=== PATIENT | female | born 1985 | race Caucasian/White ===

== ENCOUNTER → 2017-01-06 | Outpatient (CLI) | payer BC ==
[2017-01-06 15:03] LABS: BENZODIAZEPINE, URINE NEG (NEG); COCAINE,URINE NEG (NEG); PHENCYCLIDINE, URINE NEG (NEG)
== END | disposition home or self-care (01) ==
LOC: C.LAB 14:02
PROVIDERS: ATTEND Psychiatry & Neurology Psychiatry
DX: F90.2 Attention-deficit hyperactivity disorder, combined type (principal)

== ENCOUNTER → 2017-01-21 | Outpatient (CLI) | payer BC ==
[2017-01-21 13:26] LABS: BENZODIAZEPINE, URINE NEG (NEG); COCAINE,URINE NEG (NEG); PHENCYCLIDINE, URINE NEG (NEG)
== END | disposition home or self-care (01) ==
LOC: C.LAB 12:39
PROVIDERS: ATTEND Psychiatry & Neurology Psychiatry
DX: F33.1 Major depressive disorder, recurrent, moderate (principal)

== ENCOUNTER 2017-04-03 19:34 | Emergency (ER) | payer BC, OTHER ==
[~2017-04-03] VITALS: Ht 160 cm; Wt 105.2 kg
[2017-04-03 19:38] VITALS: TEMP 36.5; Ht 160 cm; Wt 105.2 kg
[2017-04-03] MEDS ORDERED: ONDANSETRON INJ 2 MG/ML 2 ML VIAL IV STA (20:09)
[2017-04-03] MEDS ORDERED: SODIUM CHLORIDE 0.9% 1000ML 1,000 ML IV SCH (20:15)
[2017-04-03] MEDS ORDERED: SODIUM CHLORIDE 0.9% 1000ML 1,000 ML IV STA (20:33)
[2017-04-03] MEDS ORDERED: LISD30CA4 PO (20:36)
[2017-04-03] MEDS ORDERED: LEVO25TA5 PO (20:37)
[2017-04-03] MEDS ORDERED: TRAZ100T29 PO (20:38)
[2017-04-03] MEDS ORDERED: VNTHFA/IN INH (20:39)
[2017-04-03 20:44] LABS: HEMATOCRIT 41.9 % (37-47); HEMOGLOBIN 14.5 g/dL (12.0-16.0); MEAN CELL VOLUME 85.7 fL (80-100); MEAN CORPUSCULAR HEMOGLOBIN 29.7 pg (25-34); MEAN CORPUSCULAR HGB CONC 34.6 g/dl (32-36); MEAN PLATELET VOLUME 9.6 fL (7.4-10.4); PLATELET COUNT 313 K/uL (130-400); RED CELL DISTRIBUTION WIDTH CV 13.7 % (11.5-14.5); RED CELL DISTRIBUTION WIDTH SD 42.3 fL (36.4-46.3)
[2017-04-03 20:53] LABS: ALBUMIN 4.2 gm/dl (3.4-5.0); CALCIUM 9.5 mg/dl (8.5-10.1); CREATININE 0.95 mg/dl (0.60-1.20); POTASSIUM 3.9 mmol/L (3.5-5.1)
[2017-04-03 20:55] LABS: TOTAL PROTEIN 7.8 gm/dl (6.4-8.2)
[2017-04-03] MEDS ORDERED: OPTIRAY 320 IV PRN (21:15)
[2017-04-03 21:27] LABS: INFLUENZA B ANTIGEN Neg for Influ B (NEG)
--- NOTE | 2017-04-03 21:36 | DIAGNOSTIC IMAGING REPORT ---
CT SCAN OF THE BRAIN WITHOUT IV CONTRAST CLINICAL HISTORY: Fall. Headache. COMPARISON STUDY: No priors. TECHNIQUE: Unenhanced axial CT scan of the brain is performed from the vertex to the skull base. A dose lowering technique was utilized adhering to the principles of ALARA. CT DOSE: 537.48 mGy.cm FINDINGS: Brain parenchyma: The brain parenchyma is normal in appearance. There is no hemorrhage, mass effect, or evidence of acute territorial ischemia by CT criteria. Rodriguez-white matter is preserved. No extra-axial fluid collection is seen. Ventricles, sulci, cisterns: Normal in configuration. Intracranial vasculature: The visualized intracranial vasculature at the skull base is normal in appearance. Calvarium: There is no depressed calvarial fracture. Sinuses and mastoids: The visualized paranasal sinuses are clear. The mastoid air cells are well pneumatized. Orbits: The bony orbits are grossly intact. IMPRESSION: No acute intracranial abnormality. Electronically signed by: Eulalio Estrada M.D. 04/03/2017 9:34 PM Dictated Date/Time: 04/03/2017 9:33 PM
--- NOTE | 2017-04-03 21:41 | DIAGNOSTIC IMAGING REPORT ---
CT SCAN OF THE ABDOMEN AND PELVIS WITH IV CONTRAST CLINICAL HISTORY: Generalized abdominal pain. Fall. COMPARISON STUDY: No priors. TECHNIQUE: Following the IV administration of 114 cc of Optiray 320, CT scan of the abdomen and pelvis is performed from the lung bases to the proximal femora. Images are reviewed in the axial, sagittal, and coronal planes. IV contrast was administered without complication. A dose lowering technique was utilized adhering to the principles of ALARA. CT DOSE: 1079.73 mGy.cm FINDINGS: Lung bases: The heart is normal in size and without pericardial effusion. The lung bases are clear note dependent atelectasis. Liver: The contrast-enhanced liver is normal in size, contour, and attenuation. Fatty infiltration is seen adjacent to falciform ligament. There is no intrahepatic biliary ductal dilatation. The hepatic veins and portal veins are patent. Gallbladder: Unremarkable. Spleen: Normal in size and attenuation. 11 mm low-attenuation lesion is seen in the spleen on image #86. Statistically this is of doubtful significance. Pancreas: Unremarkable. Adrenal glands: Unremarkable. Kidneys: The contrast enhanced kidneys are normal in size and without hydronephrosis. The kidneys enhance symmetrically. Abdominal vasculature: The abdominal aorta is normal in course and caliber. Bowel: The small bowel and colon are normal in course and caliber. The appendix is well-visualized and normal. There are bilateral ovarian follicles. Trace free fluid in the cul-de-sac is likely within physiologic limits. Peritoneum: There is no intraperitoneal free air or abdominal ascites. There is a small fat-containing umbilical hernia. Lymphadenopathy: None. Pelvic viscera: The bladder, uterus, and adnexa are normal as visualized. Skeletal structures: No fracture is seen. No lytic or blastic lesions are identified. IMPRESSION: 1. There is no evidence of solid organ injury in the abdomen or pelvis. 2. There are no acute infectious or inflammatory findings in the abdomen or pelvis. 3. There is trace free fluid in the cul-de-sac, likely within physiologic limits. Electronically signed by: Eulalio Estrada M.D. 04/03/2017 9:39 PM Dictated Date/Time: 04/03/2017 9:34 PM
--- NOTE | 2017-04-03 21:46 | EMERGENCY ROOM VISIT NOTE ---
History First contact with patient: 19:44 Chief Complaint: SYNCOPE (NEAR SYNCOPE) Stated Complaint: VOMITING,DIZZINESS,FAINTNESS LEADING TO FALL Nursing Triage Summary: pt states she has been vomiting since 04/01/17, states "I can't keep anything down." reports today "I fell down a set of stairs around 4pm." states she had +LOC for "a couple minutes." pt denies vision changes, numbness tingling. c/o head pain, and "a little bit of chest pain." pt alert and oriented x4, breathing regularly and independently, skin warm and dry. History of Present Illness The patient is a 31 year old female who presents to the Emergency Room with complaints of syncope. She fell down a flight of 10 stairs earlier this evening as she was feeling very dizzy and light headed. She lost consciousness for a few minutes. She said she hit the right side of her head. She has been unable to keep down any food since the 01 of April due to continuous vomiting. This has been associated with a fever, mild chest discomfort and shortness of breath. She denies any change in diet, she denies any sick contacts. She has only been able to keep down a small amount of water. She denies any leg weakness, arm weakness, slurred speech, difficulty swallowing, urinary symptoms Review of Systems CONSTITUTIONAL: + fever, chills. No recent infections. No weight loss or weight gain. NEUROLOGIC: + headaches, dizziness or syncopal episodes. HEENT: No hearing or visual changes. No sinus or nasal issues. CARDIOVASCULAR: +mild chest pain, no palpitations RESPIRATORY: + SOB, no cough or hemoptysis. GASTROINTESTINAL: + nausea, vomiting, diarrhea, constipation, reflux, melena or hematochezia. GENITOURINARY: No dysuria, frequency, urgency, incontinence or hematuria. SKIN: No rashes or skin lesions. HEMATOLOGIC: No bleeding or abnormal bruising Past Medical/Surgical History Medical Problems: (1) Heart disease (2) Hypertension Family History Cancer Heart disease Hypertension Seizures Social History Smoking Status: Former Smoker Current/Historical Medications Scheduled Levothyroxine Sodium (Levothyroxine Sodium), 25 MCG PO DAILY Lisdexamfetamine Dimesylate (Vyvanse), 30 MG PO DAILY Trazodone Hcl (Trazodone), 100 MG PO HS Scheduled PRN Albuterol Hfa (Ventolin Hfa), 2 PUFFS INH Q6H PRN for SOB/Wheezing Allergies Penicillin aspirin Physical Exam Vital Signs Date Time Temp Pulse Resp B/P (MAP) Pulse Ox O2 Delivery O2 Flow Rate FiO2 04/03/17 19:38 36.5 66 16 150/85 98 Room Air Physical Exam Gen: Patient appears non toxic. She is overweight and does appear uncomfortable HEENT: Head - normocephalic and atraumatic. Pupils are equal, round, and reactive to light. Extraocular eye muscles are intact and sclera are anicteric. Ears - bilaterally patent canals with noninjected tympanic membranes and no evidence of hemotympanum. Nose - moist nasal mucosa without discharge. Mouth - moist buccal mucosa. Oropharynx is nonerythematous and there is no tonsillar exudate or edema noted. uvula deviation to the left Neck: Supple; no JVD, nuchal rigidity, cervical lymphadenopathy, or auscultated bruits. Heart: Regular rate and rhythm. There is a normal S1 and S2 with no murmurs, clicks, or gallops appreciated. Lungs: Clear to auscultation bilaterally with no wheezes, rales, or rhonchi. Abdomen: Soft, mild tenderness in the epigastric region, nondistended, with good bowel sounds. There are no palpable pulsatile masses or hepatosplenomegaly. There is no guarding, rigidity, or rebound noted. Extremities: No evidence of cyanosis, clubbing, or edema. There are easily palpable peripheral pulses. Neuro:The patient is awake and alert, oriented to day, time, and place. Muscle strength is 5/5 in all 4 extremities. The patient has equal chiropractic physician strength and equal pedal push and pull. There are no cerebellar signs. Cranial nerves: 2-12 intact without any focal deficits Medical Decision & Procedures Laboratory Results 04/03/17 20:20 04/03/17 20:20 Test 04/03/17 20:20 04/03/17 20:44 Red Blood Count 4.89 M/uL (4.2-5.4) Mean Corpuscular Volume 85.7 fL (80-100) Mean Corpuscular Hemoglobin 29.7 pg (25-34) Mean Corpuscular Hemoglobin Concent 34.6 g/dl (32-36) RDW Standard Deviation 42.3 fL (36.4-46.3) RDW Coefficient of Variation 13.7 % (11.5-14.5) Mean Platelet Volume 9.6 fL (7.4-10.4) Anion Gap 6.0 mmol/L (3-11) Est Creatinine Clear Calc Drug Dose 98.7 ml/min Estimated GFR () 91.9 Estimated GFR (Non- 79.3 BUN/Creatinine Ratio 14.8 (10-20) Calcium Level 9.5 mg/dl (8.5-10.1) Total Bilirubin 0.5 mg/dl (0.2-1) Aspartate Amino Transf (AST/SGOT) 17 U/L (15-37) Alanine Aminotransferase (ALT/SGPT) 41 U/L (12-78) Alkaline Phosphatase 77 U/L (45-117) Total Protein 7.8 gm/dl (6.4-8.2) Albumin 4.2 gm/dl (3.4-5.0) Globulin 3.6 gm/dl (2.5-4.0) Albumin/Globulin Ratio 1.2 (0.9-2) Urine Test NEG (NEG) Influenza Type A Antigen Neg for Influ A (NEG) Influenza Type B Antigen Neg for Influ B (NEG) Medications Administered Medications (Trade) Dose Ordered Sig/Yeimy Route Start Time Stop Time Status Last Admin Dose Admin Ondansetron HCl (Zofran Inj) 4 mg NOW STAT IV 04/03/17 20:09 04/03/17 20:14 DC 04/03/17 20:33 4 MG ECG Indication: syncope Rhythm: sinus bradycardia ED Course 1999: patient was examined at the bedside and a full history and examination were performed 2020: I discussed the case with Dr. Santillan and we ordered labs/imaging, gave the patient 1L of NS and ordered 4mg of IV zofran 5: I reassessed the patient and she stated that she was feeling better. her lab work was unremarkable and her CT scan of her head and abdomen/pelvis were normal 0: asked the patient to give the patient food and liquid to see if she could keep down food without vomiting 0: I discussed the case with Dr. Santillan and he agreed to continue management of the patient Medical Decision The patient's history was concerning for syncope. Differential diagnosis: Etiologies such as vasovagal event, infection, hypoglycemia, electrolyte abnormalities, cardiac sources, intracerebral event, toxicologic, neurologic, as well as others were entertained. Patient felt light headed and fell down the stairs at home. Her vitals were stable in the ED and she had no focal neurological deficits. Her CBC, CMP, Urine test, CT head, Ct abdomen/pelvis were all normal. She was given 4mg of zofran and a 1 L of IVF which made her feel better but she was unable to keep down any fluids. She is likely suffering from a viral gastroenteritis which is causing her to feel nauseated. Dr. Santillan agreed to continued management of the patient Impression Primary Impression: Vomiting Additional Impression: Syncope Departure Information Referrals Jessie Caldwell M.D. (PCP) Patient Instructions My [facility] Problem Qualifiers Primary Impression: Vomiting Vomiting type: bilious vomiting Nausea presence: with nausea Qualified Codes: R11.14 - Bilious vomiting Additional Impression: Syncope Syncope type: vasovagal syncope Qualified Codes: R55 - Syncope and collapse
[2017-04-03] MEDS ORDERED: PROMETHAZINE HCL INJ 12.5 MG in SODIUM CHLORIDE 0.9% 50ML 50 ML IV STA (21:58)
--- NOTE | 2017-04-03 22:58 | EMERGENCY ROOM VISIT NOTE ---
History Report prepared by Zackery: Jerod Rico Under the Supervision of: Dr. Luc Santillan M.D. First contact with patient: 19:45 Chief Complaint: SYNCOPE (NEAR SYNCOPE) Stated Complaint: VOMITING,DIZZINESS,FAINTNESS LEADING TO FALL Nursing Triage Summary: pt states she has been vomiting since 04/01/17, states "I can't keep anything down." reports today "I fell down a set of stairs around 4pm." states she had +LOC for "a couple minutes." pt denies vision changes, numbness tingling. c/o head pain, and "a little bit of chest pain." pt alert and oriented x4, breathing regularly and independently, skin warm and dry. History of Present Illness The patient is a 31 year old female who presents to the Emergency Room following a syncopal episode that occurred just prior to arrival. The patient states that she experienced sudden onset of light headedness today while walking down a flight of stairs. She notes that she fell down, and fell 10 steps. She confirms that she did lose consciousness. This event was unwitnessed , and she is unsure how long she was unconscious. She did not have incontinence , she did not bite her tongue. She confirms hitting her head on the right side, and having pain on the right side of her head now. She notes that she was likely dizzy today secondary to persistent vomiting since April 01. She denies any diarrhea. Pt denies fevers, chills, diaphoresis, visual changes, neck pain, chest pain, breathing difficulties, abdominal pain, back pain, melena , hematochezia, urinary symptoms, numbness, weakness, lymphadenopathy, rash, or other complaints. 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 A total of ten systems were reviewed and were otherwise negative. Past Medical & Surgical Medical Problems: (1) Heart disease (2) Hypertension Heart disease Hypertension Family History Cancer Heart disease Hypertension Seizures Social History Smoking Status: Former Smoker Marital Status: Housing Status: lives with significant other Occupation Status: employed Current/Historical Medications Scheduled Levothyroxine Sodium (Levothyroxine Sodium), 25 MCG PO DAILY Lisdexamfetamine Dimesylate (Vyvanse), 30 MG PO DAILY Trazodone Hcl (Trazodone), 100 MG PO HS Scheduled PRN Albuterol Hfa (Ventolin Hfa), 2 PUFFS INH Q6H PRN for SOB/Wheezing Allergies Coded Allergies: Aspirin (Verified Allergy, Unknown, UNKNOWN, 04/03/17) Salmeterol (Verified Allergy, Unknown, UNKNOWN, 04/03/17) Milk (Verified Adverse Reaction, Unknown, UNKNOWN, 04/03/17) Uncoded Allergies: PENICILLIN (Allergy, Unknown, UNKNOWN, 04/03/17) Physical Exam Vital Signs Date Time Temp Pulse Resp B/P (MAP) Pulse Ox O2 Delivery O2 Flow Rate FiO2 04/03/17 23:17 75 16 137/76 98 04/03/17 22:13 63 18 137/82 98 Room Air 04/03/17 19:38 36.5 66 16 150/85 98 Room Air Physical Exam GENERAL: Awake, alert, well-appearing, in no distress HENT: Normocephalic, atraumatic. Oropharynx unremarkable. EYES: Normal conjunctiva. Sclera non-icteric. NECK: Supple. No nuchal rigidity. FROM. No JVD. RESPIRATORY: Clear to auscultation. CARDIAC: Regular rate, normal rhythm. Extremities warm and well perfused. Pulses equal. ABDOMEN: Soft, non-distended. RLQ tenderness to palpation. No rebound or guarding. No masses. RECTAL: Deferred. MUSCULOSKELETAL: Chest examination reveals no tenderness. The back is symmetrical on inspection without obvious abnormality. There is no CVA tenderness to palpation. No joint edema. LOWER EXTREMITIES: Calves are equal size bilaterally and non-tender. No edema. No discoloration. NEURO: Normal sensorium. No sensory or motor deficits noted. SKIN: No rash or jaundice noted. Medical Decision & Procedures Laboratory Results 04/03/17 20:20 04/03/17 20:20 Test 04/03/17 20:20 04/03/17 20:44 Red Blood Count 4.89 M/uL (4.2-5.4) Mean Corpuscular Volume 85.7 fL (80-100) Mean Corpuscular Hemoglobin 29.7 pg (25-34) Mean Corpuscular Hemoglobin Concent 34.6 g/dl (32-36) RDW Standard Deviation 42.3 fL (36.4-46.3) RDW Coefficient of Variation 13.7 % (11.5-14.5) Mean Platelet Volume 9.6 fL (7.4-10.4) Anion Gap 6.0 mmol/L (3-11) Est Creatinine Clear Calc Drug Dose 98.7 ml/min Estimated GFR () 91.9 Estimated GFR (Non- 79.3 BUN/Creatinine Ratio 14.8 (10-20) Calcium Level 9.5 mg/dl (8.5-10.1) Total Bilirubin 0.5 mg/dl (0.2-1) Aspartate Amino Transf (AST/SGOT) 17 U/L (15-37) Alanine Aminotransferase (ALT/SGPT) 41 U/L (12-78) Alkaline Phosphatase 77 U/L (45-117) Total Protein 7.8 gm/dl (6.4-8.2) Albumin 4.2 gm/dl (3.4-5.0) Globulin 3.6 gm/dl (2.5-4.0) Albumin/Globulin Ratio 1.2 (0.9-2) Urine Test NEG (NEG) Influenza Type A Antigen Neg for Influ A (NEG) Influenza Type B Antigen Neg for Influ B (NEG) Laboratory results reviewed by me Medications Administered Medications (Trade) Dose Ordered Sig/Yeimy Route Start Time Stop Time Status Last Admin Dose Admin Ondansetron HCl (Zofran Inj) 4 mg NOW STAT IV 04/03/17 20:09 04/03/17 20:14 DC 04/03/17 20:33 4 MG Promethazine HCl 12.5 mg/Sodium Chloride 50.5 ml @ 204 mls/hr NOW STAT IV 04/03/17 21:58 04/03/17 22:12 DC 04/03/17 22:13 204 MLS/HR Promethazine HCl (Phenergan 25MG Home Pack) 1 homepack UD ONCE PO 04/03/17 23:30 04/03/17 23:31 DC 04/03/17 23:30 1 HOMEPACK ECG Indication: syncope Rate (beats per minute): 57 Rhythm: sinus bradycardia Findings: no acute ischemic change, no ectopy, other (Normal [place]) ED Course 1950: The patient was evaluated by the Resident at this time. 2009: Ordered Zofran 4 mg IV. 2015: Ordered Sodium Chloride 1000 mL @ 999 mL/hr IV. 2021: The patient was evaluated in room B9. A complete history and physical exam was performed. 2032: Ordered Sodium Chloride 1000 mL @ 999 mL/hr IV. 2157: The patient was given an oral challenge and failed. She vomited. IV Phenergan ordered. 2299: Patient was reassessed and was doing much better. Symptoms resolved. I discussed conservative management with close follow-up as an outpatient. The patient agreed. She worsens in any way she will be back. Medical Decision Triage Nursing notes reviewed. The patient's presentation and history were concerning for 2 days of vomiting and syncope with head injury. Etiologies such as dehydration, concussion, viral process, , vasovagal event, infection, constipation, appendicitis, hypoglycemia, electrolyte abnormalities, cardiac sources, intracerebral event, toxicologic, neurologic, as well as others were entertained. The patient was evaluated. Clinically she was doing well. She was hydrated. She was given Zofran. She was feeling better. CT imaging did not reveal any evidence of an abdominal pathology or intracranial injury. The patient was given an oral challenge. Her blood work and urine were negative. Urine analysis was negative. ECG was unremarkable. The patient became nauseated and vomited. She was given a dose of IV Phenergan. On reassessment she was feeling significantly better and tolerated oral fluids. I discussed conservative management. I will send her home with a Phenergan home pack. She was given a work note. As her imaging is negative I suspect that she has a concussion and possibly a viral process. If she worsens in any way she will come back to the Emergency Room for reevaluation. I gave my usual and customary discussion regarding this issue. She will follow-up closely with her primary physician. By the evaluation outlined above other emergent etiologies such as those listed in the differential, as well as others, were deemed relatively unlikely. The patient was educated about the findings as listed above. All questions were answered and the patient was pleased with the treatment. Return instructions were outlined and the patient was discharged in stable condition. The patient was referred to [] for follow-up for a recheck of the current condition. Impression Primary Impression: Vomiting Additional Impression: Concussion Scribe Attestation The scribe's documentation has been prepared under my direction and personally reviewed by me in its entirety. I confirm that the note above accurately reflects all work, treatment, procedures, and medical decision making performed by me. Departure Information Dispostion Home / Self-Care Referrals Jessie Caldwell M.D. (PCP) Patient Instructions My [facility] Additional Instructions VOMITING INSTRUCTIONS: DO NOT drive, drink alcohol, operate machinery, or perform dangerous activities today. You were given medications in the ER that can affect your ability to safely function or operate a vehicle. Phenergan(promethazine) tablets 25mg: Take one every six hours as needed for nausea. Avoid alcohol, operating machinery or dangerous equipment, working on ladders or roofs, DRIVING, or situations where being under the influence may be dangerous. Acetaminophen(Tylenol) may be used for fever or pain. Use 1000mg every six hours as needed. Avoid using more than 4000mg in a 24 hour period. Rest and drink plenty of fluids as tolerated. Slow sips of water or sports drinks are recommended instead of large amounts all at once. Continue current medications. Once your stomach is settled start with a clear liquid diet (jello, soup broth, etc.) and then advance as tolerated. You should avoid full, heavy meals for about 24 hrs from the time your symptoms resolved. Return to the ER for persistent vomiting, fevers, abdominal pain, chest pains, difficulty breathing, black or bloody stools, worsening of your condition, or as needed. Follow up with your primary physician in 2-3 days for a recheck of your current condition CONCUSSION DISCHARGE INSTRUCTIONS: What is a concussion? A concussion is a disturbance in the function of the brain caused by a direct or indirect force to the head. It results in a variety of symptoms like: headache, balance problems, nausea, vomiting, vision problems, hearing problems/ringing, drowsiness, irritability, and/or difficulty concentrating or remembering. A concussion may, or may not involve memory problems or loss of consciousness. Concussion instructions: Stop and stay away from ALL physical activity until you are symptom free from: Headaches Balance problems Feeling "dinged" Poor concentration Drowsy Fatigued Rest and avoid strenuous activities for the next few days. Get 8-10 hours of sleep per night. Limit activities that involve significant concentration and attention during this time to speed your recovery. This includes studying, attending school, playing video games, and heavy reading. Your brain needs to rest. Eat right and eat often. Now is the time to feed your brain. Well balanced diets that avoid high sugar foods, sodas, caffeine, etc. are better for your brain. NO ALCOHOL OR DRUGS! Avoid stimulants like caffeine, red bull, mountain dew, "energy" drinks, etc. Tylenol(acetaminophen) may be used for headaches. Use 1000mg every six hours as needed. Avoid using more than 4000mg in a 24 hour period. Avoid anti-inflammatories such as aspirin, ibuprofen, Alleve, naprosyn, Motrin, or Advil as these can interfere with blood clotting and lead to bleeding within the brain after a traumatic injury. Avoid horseback riding for one week. POST CONCUSSIVE SYNDROME: Occasionally patients can experience a postconcussive syndrome which includes prolonged headaches and memory difficulties. This may occur over the next several days, weeks or rarely, even months. It is important to have a primary care physician follow-up in order to help if the situation develops. Problems could arise over the next 24 to 48 hours. You should not be left alone and MUST go to the hospital immediately if you: -Have a headache that suddenly gets worse. -Are very drowsy or cannot be woken up from sleep. -Can't recognize people or places. -Have repeated vomiting. -Behave unusually, seemed confused, or start acting irritable. -Have a seizure (arms and legs start jerking uncontrollably). -Have weak or numb arms or legs. -Are unsteady on your feet -Experience slurred speech or difficulty speaking. Problem Qualifiers Primary Impression: Vomiting Vomiting type: bilious vomiting Nausea presence: with nausea Qualified Codes: R11.14 - Bilious vomiting
[2017-04-03 23:17] VITALS: BP 137/76; PULSE 75; O2SAT 98
[2017-04-03] MEDS ORDERED: PHENERGAN 25MG HOMEPACK PO ONE (23:30)
== END 2017-04-03 23:30 | disposition home or self-care (01) ==
LOC: C.EDB 19:35
DX: R11.14 Bilious vomiting (principal); S06.0X9A Concussion with loss of consciousness of unspecified duration, initial encounter; R55 Syncope and collapse; W10.9XXA Fall (on) (from) unspecified stairs and steps, initial encounter; Y93.01 Activity, walking, marching and hiking; Y99.8 Other external cause status; R42 Dizziness and giddiness; I10 Essential (primary) hypertension; Z87.891 Personal history of nicotine dependence; Z82.49 Family history of ischemic heart disease and other diseases of the circulatory system; Z82.0 Family history of epilepsy and other diseases of the nervous system